=== PATIENT | female | born 1950 ===

== ENCOUNTER 2018-12-19 22:29 | Inpatient (IN) | payer BC ==
[~2018-12-19] VITALS: Ht 154.9 cm; Wt 94.1 kg
[2018-12-19 22:44] VITALS: BP 155/88; PULSE 73; TEMP 98.3
[2018-12-19] MEDS ORDERED: PRIL40 PO (22:47)
--- NOTE | 2018-12-19 23:00 | NUR ---
Arrived from [place] via EMS. Admission assessment complete. Patient a/o x4. States, she is slightly nauseous, and when asked about pain, she states she is "uncomfortable." Informed patient I will contact Dr. Grimaldo for antiemetic/pain medication orders. She is agreeable to plan. Will continue to assess.
[2018-12-19] MEDS ORDERED: ZYRTEC 10MG10 MG PO (23:21)
[2018-12-19] MEDS ORDERED: PROBIOTIC ACID1 EAC3 PO (23:22)
[2018-12-19] MEDS ORDERED: COZAAR 50MG50 MG/TAB PO (23:23)
--- NOTE | 2018-12-19 23:30 | NUR ---
Notified Dr. Grimaldo that patient arrived from [place]. Antiemetic/pain medication/IVF ordered. Informed him that the med rec is complete and ready for review. Holding meds for now, and he will review them in the morning. No orders needed for NG tube.
[2018-12-20] VITALS (13 sets, daily range): BP systolic 113–148; BP diastolic 51–70; PULSE 58–68; TEMP 97.3–99.1
--- NOTE | 2018-12-20 06:14 | NUR ---
Patient in bed, resting. States, pain 7/10 in abdomen, and generalized "achy." Prn pain medication given. Will continue to assess.
--- NOTE | 2018-12-20 07:38 | NUR ---
Patient currently resting in bed at this time, call light in reach and NPO at this time. Patient currently on IV fluids and not reporting any nausea at this time. Reporting pain of 4/10 at this time and has been given prn pain meds this am. Will continue to monitor.
--- NOTE | 2018-12-20 13:24 | NUR ---
Received report from [facility] at recovery. Patient is returning from a robotic repair of incarcerated ventral and umbilical hernia with IPOM mesh placement using ventral light mesh. Awaiting patient to arrive.
--- NOTE | 2018-12-20 13:42 | NUR ---
Patient is currently resting in bed at this time, call light in reach and visitors at her side. VSS at this time.
--- NOTE | 2018-12-20 15:50 | NUR ---
Patient has good gag reflex. She is able to drink water and keep down. Uses a straw effectively. She is now off oxygen and at 96% Room Air. Patient reporting some twinges in the abdominal area, but prn morphine/tylenol has been effective. Will continue to monitor.
[2018-12-21] VITALS (7 sets, daily range): BP systolic 107–133; BP diastolic 53–69; PULSE 67–79; TEMP 97.9–98.9
--- NOTE | 2018-12-21 06:16 | NUR ---
[facility] FOR ABDOMINAL DISCOMFORT. PT HAS BEEN UP, AMBULATED IN ROOM. NO N/V.
--- NOTE | 2018-12-21 06:45 | NUR ---
resting in bed, Dr Grimaldo in to see patient, bedside shift report received from HARIKA Villalobos
--- NOTE | 2018-12-21 08:49 | NUR ---
sitting up on side of bed and had small amount of clear liquids but just says she is tired, full assessment completed, see interventions for further info, will lay back in bed and rest for now, will ambulate in chowdhury later when up to bathroom
--- NOTE | 2018-12-21 10:10 | NUR ---
appears to be sleeping, in bed with eyes closed, resp quiet and easy
--- NOTE | 2018-12-21 10:43 | NUR ---
appears to continue to sleep
--- NOTE | 2018-12-21 11:24 | NUR ---
SW met with patient to discuss discharge planning. Patient lives independently at home. Patient's PCP is in [place] and she obtains prescriptions from [facility] in [place]. Patient does not use any assistance devices or home health services. Patient does not have a DPOA and she is not interested in obtaining one at this time. SW does not anticipate any discharge needs.
--- NOTE | 2018-12-21 11:30 | NUR ---
awake resting in bed, states has been sleeping and phone woker her, asking about if she was to go home today and informed her Dr Grimaldo was going to see how she did today before deciding, encouraged her to try and have something for lunch since she didn't have much this am, states she is feeling hungry now and will order lunch
--- NOTE | 2018-12-21 13:30 | NUR ---
had lunch and tolerated well, c/o some pain to left side of abdomen, assisted out of bed and she needed some assistance with sitting up, ambulated in chowdhury with slow steady gait, then back to room and encouraged to sit up in recliner for a while,
--- NOTE | 2018-12-21 14:51 | NUR ---
Initial visit; Patient stated she is not doing very well. [facility] will keep her in [facility] prayers.
--- NOTE | 2018-12-21 15:25 | NUR ---
appears to be dozing in the recliner, thinks she would like to stay another day
--- NOTE | 2018-12-21 15:45 | NUR ---
Dr Grimaldo notified patient is not ready for discharge today
--- NOTE | 2018-12-21 19:01 | NUR ---
bedside shift report given to HARIKA Rodriguez
--- NOTE | 2018-12-21 20:30 | NUR ---
Patient up with assitance to sit up on side of bed and ambulates to bathroom to attempt BM. Alert and oriented x 4. Lap sites without redness/drainage and well approximated. SCD's on. Has supper tray but doesn't feel like eating at this time. Reviewed have items in patient refrigerator if would like later on.
--- NOTE | 2018-12-21 22:00 | NUR ---
Patient resting in bed with eyes closed. Respirations with ease.
--- NOTE | 2018-12-22 01:00 | NUR ---
Patient just returned from the bathroom. Reports passed gas but no BM. Tylenol reviewed and given. Denies further needs.
[2018-12-22 03:05] VITALS: BP 134/66; PULSE 75; TEMP 97.8
--- NOTE | 2018-12-22 04:55 | NUR ---
Patient has been resting quietly in bed. Respirations with ease.
[2018-12-22 08:06] VITALS: BP 136/72; PULSE 71; TEMP 98
[2018-12-22 12:03] VITALS: BP 131/66; PULSE 75; TEMP 98.1
[2018-12-22 15:11] VITALS: BP 119/59; PULSE 68; TEMP 97.8
--- NOTE | 2018-12-22 16:12 | NUR ---
PATIENT DISCHARGING HOME VIA WHEELCHAIR TO PERSONAL VEHICLE WITH FRIENDS. GAVE DISCHARGE INSTRUCTIONS, PRESCRIPTION & FOLLOW UP APT. ANSWERED ALL QUESTIONS/CONCERNS. DC'D IV, COVERED SITE WITH BANDAID. PATIENT DISCHARGED WITH PERSONAL BELONGINGS.
== END 2018-12-22 16:15 | disposition home or self-care (01) | DRG 355 ==
LOC: SURG 22:29
PROVIDERS: ADMIT Surgery
PROC: 0WQF4ZZ Repair Abdominal Wall, Percutaneous Endoscopic Approach (ICD-10-PCS; 2018-12-20)
PROC: 8E0W4CZ Robotic Assisted Procedure of Trunk Region, Percutaneous Endoscopic Approach (ICD-10-PCS; 2018-12-20)
PROC: 0WUF4JZ Supplement Abdominal Wall with Synthetic Substitute, Percutaneous Endoscopic Approach (ICD-10-PCS; principal; 2018-12-20 10:00)
DX: K42.0 Umbilical hernia with obstruction, without gangrene (principal); K43.6 Other and unspecified ventral hernia with obstruction, without gangrene; I10 Essential (primary) hypertension; K21.9 Gastro-esophageal reflux disease without esophagitis; E66.01 Morbid (severe) obesity due to excess calories; Z68.39 Body mass index [BMI] 39.0-39.9, adult; Z88.2 Allergy status to sulfonamides; Z88.0 Allergy status to penicillin
CPT/HCPCS: C1781; J1885; J2270; J2405; J2704; J3010; J7030; J7120